=== PATIENT | female | born 1960 | race Two or more races ===

== ENCOUNTER 2022-06-07 13:27 | Inpatient (IN) | payer OTHER ==
[~2022-06-07] VITALS: Ht 162.6 cm; Wt 59.0 kg
[~2022-06-07 13:27] MED LIST: ALBAFORT325 ( 65 ); ATIVAN0.5 MG; ATIVAN2 MG; PAROXETINE HCL10 MG; SYNTHROID50 MCG
[2022-06-07] MEDS ORDERED: CLONAZEPAM1 MG PO (13:51)
[2022-06-07] MEDS ORDERED: TOPIRAMATE25 MG PO (13:51)
[2022-06-07] MEDS ORDERED: TOPIRAMATE50 MG PO (13:51)
[2022-06-07] MEDS ORDERED: ATORVASTATIN CA20 MG PO (13:51)
[2022-06-07] MEDS ORDERED: LEVETIRACETAM1000 MG PO (13:52)
[2022-06-07] MEDS ORDERED: SYNTHROID100 MCG (13:52)
--- NOTE | 2022-06-07 13:57 | NUR ---
SE RECIBE PACIENTE ALERTA, EN [place] REFIERE TRAER REFERIDA DE DR.HECTOR GUZMAN GASTROENTEROLOGO, PARA EVALUACION DE PROCEDIMIENTO DE TUBO DE ALIMENTACION YA QUE PACIENTE NO TRAGA Y SE DIFICULTA LA ALIMENTACION. SE ESTIMAN S/V SE UBICA EN AREA DE OBSERVACION. PTE OPERADA POR DR.TOUS NICOLAS.
--- NOTE | 2022-06-07 15:45 | NUR ---
CRESENCIO MICHAELS ORIENTA A FAMILIAR SOBRE TRATAMIENTO A SEGUIR, JESÚS REFIERE ENTENDER. LE COLECTA MUESTRAS, LA CANALIZA Y LE ADMINISTRA IV FLUIDS [place] ORDEN MEDICA. PENDIENTE EKG Y AURELIA X
--- NOTE | 2022-06-07 16:47 | NUR ---
SE REALIZA EKG.
[2022-06-08] MEDS ORDERED: PANTOPRAZOLE SO40 MG (08:20)
[2022-06-11] MEDS ORDERED: SYNTHROID100 MCG PO (16:08)
[2022-06-11] MEDS ORDERED: LIPITOR20 MG PO (16:08)
[2022-06-11] MEDS ORDERED: KEPPRA500 MG PO (16:08)
== END 2022-06-11 17:02 | disposition home or self-care (01) | DRG 641 ==
LOC: ER 13:27 → MEDJ 20:42
PROVIDERS: ADMIT Internal Medicine; ATTEND Internal Medicine
PROC: 0DH63UZ Insertion of Feeding Device into Stomach, Percutaneous Approach (ICD-10-PCS; principal; 2022-06-08)
DX: E86.0 Dehydration (principal); G40.89 Other seizures; R13.19 Other dysphagia; R63.0 Anorexia; G30.9 Alzheimer's disease, unspecified; F02.80 Dementia in other diseases classified elsewhere, unspecified severity, without behavioral disturbance, psychotic disturbance, mood disturbance, and anxiety; E03.9 Hypothyroidism, unspecified; E78.5 Hyperlipidemia, unspecified; Z20.822 Contact with and (suspected) exposure to COVID-19; Z74.01 Bed confinement status